=== PATIENT | male | born 1945 | race Caucasian/White ===

== ENCOUNTER 2024-01-06 17:38 | Inpatient (IN) | payer MEDICARE, OTHER ==
[~2024-01-06] VITALS: Ht 167.6 cm; Wt 95.3 kg
[2024-01-06 18:04] LABS: BASOPHILS # (AUTO) 0.1 K/UL (0.0-0.2); EOSINOPHILS # (AUTO) 0.4 K/uL (0.0-0.7); EOSINOPHILS % (AUTO) 2.7 % (0.0-7.0); HEMATOCRIT 48.3 % (36.7-47.1); HEMOGLOBIN 15.5 g/dL (12.5-16.3); LYMPHOCYTES # (AUTO) 5.8 K/uL (0.8-4.8); LYMPHOCYTES % (AUTO) 43.2 % (20.5-51.5); MEAN CORPUSCULAR HEMOGLOBIN 28.4 uug (23.8-33.4); MEAN CORPUSCULAR HGB CONC 32 g/dL (32.5-36.3); MONOCYTES # (AUTO) 1.3 K/uL (0.1-1.30); MONOCYTES % (AUTO) 9.7 % (0.0-11.0); NEUTROPHILS # (AUTO) 5.8 K/uL (1.8-8.9); NEUTROPHILS % (AUTO) 43.4 % (38.5-71.5); PLATELET COUNT (AUTO) 238 K/uL (152-348); RED BLOOD CELL COUNT(AUTO) 5.43 MIL/uL (4.06-5.63); RED CELL DISTRIBUTION WIDTH 15.5 % (12.1-16.2); WHITE BLOOD COUNT (AUTO) 13.5 K/uL (3.6-10.2)
[2024-01-06 18:06] LABS: DIFFERENTIAL COMMENT 1
[2024-01-06 18:12] LABS: CALCIUM 9.4 mg/dL (8.5-10.1); CARBON DIOXIDE 23 mmol/L (21-32); CHLORIDE 105 mmol/L (98-107); CREATININE 1.5 mg/dL (0.6-1.3); GLUCOSE 89 mg/dL (74-106); POTASSIUM 4.4 mmol/L (3.5-5.1); SODIUM SERUM 141 mmol/L (136-145); UREA NITROGEN, BLOOD 37 mg/dL (7-18)
[2024-01-06 18:17] LABS: ALANINE AMINOTRANSFERASE 29 U/L (16-63); ALBUMIN 3.9 g/dL (3.4-5.0); ALKALINE PHOSPHATASE 97 U/L (50-136); ASPARTATE AMINOTRANSFERASE 13 U/L (15-37); BILIRUBIN,DIRECT 0.2 mg/dL (0.0-0.2); BILIRUBIN,TOTAL 0.7 mg/dL (0.2-1.0); TOTAL PROTEIN, SERUM 8.1 g/dL (6.4-8.2)
[2024-01-06] MEDS ORDERED: TRAM50TA2 PO (18:23)
[2024-01-06] MEDS ORDERED: FENO40TA3 PO (18:23)
[2024-01-06] MEDS ORDERED: FURO-152 PO (18:23)
[2024-01-06] MEDS ORDERED: MILK OF MAG PO (18:23)
[2024-01-06] MEDS ORDERED: GABA600T12 PO (18:23)
[2024-01-06] MEDS ORDERED: ALLO300T2 PO (18:23)
[2024-01-06] MEDS ORDERED: METO200T49 PO (18:23)
[2024-01-06] MEDS ORDERED: CLOP75TA15 PO (18:23)
[2024-01-06] MEDS ORDERED: LACT10SO58 PO (18:23)
[2024-01-06] MEDS ORDERED: ATOR40TA PO (18:23)
[2024-01-06] MEDS ORDERED: GALA8CAP PO (18:23)
[2024-01-06] MEDS ORDERED: GUAI100S9 PO (18:23)
[2024-01-06] MEDS ORDERED: DIGO125T PO (18:23)
[2024-01-06] MEDS ORDERED: BISA10SU61 RC (18:23)
[2024-01-06] MEDS ORDERED: FAMO10TA41 PO (18:23)
[2024-01-06] MEDS ORDERED: ACET-3117 PO (18:23)
[2024-01-06] MEDS ORDERED: MINERAL OIL (18:23)
[2024-01-06] MEDS ORDERED: APIX5TAB PO (18:23)
[2024-01-06] MEDS ORDERED: POLY15DR64 OP (18:23)
[2024-01-06] MEDS ORDERED: NICO-625 TP (18:23)
[2024-01-06 18:42] LABS: ACETAMINOPHEN < 2.0 ug/mL (10-30)
[2024-01-06 18:43] LABS: ETHANOL < 3 MG/DL (0-10)
[2024-01-06 22:45] VITALS: BP 133/60; TEMP 97.7; O2SAT 96
[2024-01-06] MEDS: BLOOD SUGAR DIAGNOSTIC 1 EACH STRIP VI ONE (23:30)
[2024-01-06] MEDS ORDERED: MAGNESIUM HYDROXIDE 30 ML LIQUID UDC PO PRN (23:30)
[2024-01-06] MEDS ORDERED: MAG HYDROX/AL HYDROX/SIMETH 30 ML LIQUID UDC PO PRN (23:30)
[2024-01-07 07:44] VITALS: BP 107/48; TEMP 98.2; O2SAT 91
[2024-01-07] MEDS ORDERED: FAMOTIDINE 20 MG TABLET PO PRN (09:30)
[2024-01-07] MEDS ORDERED: TRAMADOL HCL 50 MG TABLET PO PRN (09:30)
[2024-01-07] MEDS ORDERED: FAMO40TA7 PO (09:30)
[2024-01-07] MEDS ORDERED: ACETAMINOPHEN 325 MG TABLET PO PRN (09:30)
[2024-01-07] MEDS ORDERED: FAMOTIDINE 20 MG TABLET PO SCH (09:30)
[2024-01-07] MEDS ORDERED: BISACODYL 10 MG SUPP.RECT RC PRN (09:30)
[2024-01-07] MEDS ORDERED: HOME MED MISCELLANEOUS XX SCH (09:30)
[2024-01-07] MEDS ORDERED: LACTULOSE 20 G/30 ML LIQUID UDC PO PRN (09:30)
[2024-01-07] MEDS ORDERED: GALA8TAB8 PO (09:34)
[2024-01-07] MEDS: NICOTINE 7 MG/24HR PATCH TD SCH (10:03)
[2024-01-07] MEDS: CLOPIDOGREL 75 MG TABLET PO SCH (10:04)
[2024-01-07] MEDS: POLYVINYL ALCOHOL OPHT DROPS 15 ML BOTTLE EACHEYE PRN (13:20)
[2024-01-07] MEDS: DIGOXIN 125 MCG TABLET PO SCH (13:20)
[2024-01-07] MEDS: SERTRALINE HCL 50 MG TABLET PO SCH (13:23)
[2024-01-07 15:28] VITALS: BP 157/79; TEMP 98.2; O2SAT 98
[2024-01-07] MEDS: GABAPENTIN 300 MG CAPSULE PO SCH (15:38)
[2024-01-07] MEDS ORDERED: NA P133E RC (15:57)
[2024-01-07] MEDS: LACTULOSE 20 G/30 ML LIQUID UDC PO SCH (16:47)
[2024-01-07] MEDS: APIXABAN 5 MG TABLET PO SCH (16:48)
[2024-01-07] MEDS: FENOFIBRATE NANOCRYSTALLIZED 48 MG TABLET PO SCH (16:48)
[2024-01-07] MEDS: ATORVASTATIN 40 MG TABLET PO SCH (18:19)
[2024-01-07 20:00] VITALS: BP 117/67; TEMP 97.5; O2SAT 91
[2024-01-08 07:16] LABS: BASOPHILS # (AUTO) 0.1 K/UL (0.0-0.2); BASOPHILS % (AUTO) 0.8 % (0.0-2.0); EOSINOPHILS # (AUTO) 0.3 K/uL (0.0-0.7); HEMATOCRIT 46.7 % (36.7-47.1); HEMOGLOBIN 15.3 g/dL (12.5-16.3); LYMPHOCYTES % (AUTO) 38.3 % (20.5-51.5); MEAN CORPUSCULAR HEMOGLOBIN 29.5 uug (23.8-33.4); MEAN CORPUSCULAR HGB CONC 33 g/dL (32.5-36.3); MEAN CORPUSCULAR VOLUME 89.7 fL (73.0-96.2); MONOCYTES # (AUTO) 0.9 K/uL (0.1-1.30); MONOCYTES % (AUTO) 8.9 % (0.0-11.0); NEUTROPHILS # (AUTO) 5.1 K/uL (1.8-8.9); PLATELET COUNT (AUTO) 199 K/uL (152-348); RED BLOOD CELL COUNT(AUTO) 5.21 MIL/uL (4.06-5.63); RED CELL DISTRIBUTION WIDTH 15.2 % (12.1-16.2); WHITE BLOOD COUNT (AUTO) 10.5 K/uL (3.6-10.2)
[2024-01-08 07:17] LABS: DIFFERENTIAL COMMENT 1
[2024-01-08 07:50] LABS: ALANINE AMINOTRANSFERASE 25 U/L (16-63); ALBUMIN 3.7 g/dL (3.4-5.0); ALKALINE PHOSPHATASE 94 U/L (50-136); ASPARTATE AMINOTRANSFERASE 8 U/L (15-37); BILIRUBIN,TOTAL 0.9 mg/dL (0.2-1.0); CALCIUM 9.3 mg/dL (8.5-10.1); CARBON DIOXIDE 23 mmol/L (21-32); CHLORIDE 108 mmol/L (98-107); CREATINE KINASE, TOTAL 60 U/L (39-308); CREATININE 1.5 mg/dL (0.6-1.3); GLUCOSE 108 mg/dL (74-106); MAGNESIUM 1.5 mg/dL (1.8-2.4); PHOSPHOROUS 2.7 mg/dL (2.5-4.9); POTASSIUM 3.9 mmol/L (3.5-5.1); SODIUM SERUM 142 mmol/L (136-145); TOTAL PROTEIN, SERUM 7.6 g/dL (6.4-8.2); UREA NITROGEN, BLOOD 33 mg/dL (7-18)
[2024-01-08 08:05] VITALS: BP 117/71; TEMP 98; O2SAT 94
[2024-01-08] MEDS ORDERED: ALLOPURINOL 300 MG TABLET PO SCH ×2 (09:00→10:30)
[2024-01-08] MEDS: METOPROLOL SUCCINATE XL 50 MG TAB.SR.24H PO SCH (09:10)
[2024-01-08] MEDS: MAGNESIUM OXIDE 400 MG TABLET PO ONE (10:26)
[2024-01-08] MEDS ORDERED: METF-494 PO (10:45)
[2024-01-08] MEDS: FUROSEMIDE 20 MG TABLET PO SCH (11:08)
[2024-01-08 15:07] VITALS: BP 125/71; TEMP 98; O2SAT 96
[2024-01-08] MEDS: GALANTAMINE 8 MG PO SCH (17:49)
[2024-01-08 20:00] VITALS: BP 111/69; TEMP 97.5; O2SAT 95
[2024-01-08] MEDS: INGREZZA 40 MG PO SCH (20:17)
[2024-01-08] MEDS: ATORVASTATIN 40 MG TABLET PO SCH (21:07)
[2024-01-09 08:00] VITALS: BP 116/70; TEMP 97.6; O2SAT 97
[2024-01-09] MEDS ORDERED: MISCELLANEOUS MED PO SCH (09:00)
[2024-01-09] MEDS: REMEDY ESSENTIAL ZINC PASTE 113 GM TOP SCH (10:03)
[2024-01-09] MEDS: ALLOPURINOL 100 MG TABLET PO SCH (10:03)
[2024-01-09 20:00] VITALS: BP 122/55; TEMP 97.8; O2SAT 95
[2024-01-10 07:50] LABS: CALCIUM 9.5 mg/dL (8.5-10.1); CREATININE 1.3 mg/dL (0.6-1.3); POTASSIUM 4.2 mmol/L (3.5-5.1)
[2024-01-10 08:25] VITALS: BP 133/93; TEMP 97.9; O2SAT 97
[2024-01-10 16:21] VITALS: BP 111/54; TEMP 97.9; O2SAT 97
[2024-01-10 21:12] VITALS: BP 105/59; TEMP 98; O2SAT 98
[2024-01-11] MEDS: FAMOTIDINE 20 MG TABLET PO PRN (05:02)
[2024-01-11 07:21] LABS: CALCIUM 9.4 mg/dL (8.5-10.1); CARBON DIOXIDE 26 mmol/L (21-32); CHLORIDE 103 mmol/L (98-107); CREATININE 1.4 mg/dL (0.6-1.3); GLUCOSE 113 mg/dL (74-106); POTASSIUM 4.3 mmol/L (3.5-5.1); SODIUM SERUM 139 mmol/L (136-145); UREA NITROGEN, BLOOD 32 mg/dL (7-18)
[2024-01-11 08:19] VITALS: BP 96/56; TEMP 98.2; O2SAT 98
[2024-01-11] MEDS: SERTRALINE HCL 50 MG TABLET PO SCH (08:43)
[2024-01-11 16:30] VITALS: BP 109/59; TEMP 98.1; O2SAT 97
[2024-01-11 20:20] VITALS: BP 106/58; TEMP 98.1; O2SAT 96
[2024-01-12 09:35] VITALS: BP 98/60; TEMP 97.7; O2SAT 97
[2024-01-12 10:41] LABS: CALCIUM 9.8 mg/dL (8.5-10.1); CARBON DIOXIDE 26 mmol/L (21-32); CHLORIDE 106 mmol/L (98-107); CREATININE 1.5 mg/dL (0.6-1.3); GLUCOSE 166 mg/dL (74-106); POTASSIUM 4.3 mmol/L (3.5-5.1); SODIUM SERUM 142 mmol/L (136-145); UREA NITROGEN, BLOOD 31 mg/dL (7-18)
[2024-01-12 16:50] VITALS: BP 113/66; TEMP 97.8; O2SAT 97
[2024-01-12 20:08] VITALS: BP 110/62; TEMP 97.6; O2SAT 95
[2024-01-13 08:00] VITALS: BP 103/57; TEMP 97.9; O2SAT 92
[2024-01-13 14:49] LABS: CALCIUM 9.4 mg/dL (8.5-10.1); CARBON DIOXIDE 24 mmol/L (21-32); CHLORIDE 103 mmol/L (98-107); CREATININE 1.6 mg/dL (0.6-1.3); GLUCOSE 121 mg/dL (74-106); POTASSIUM 4.3 mmol/L (3.5-5.1); SODIUM SERUM 139 mmol/L (136-145); UREA NITROGEN, BLOOD 34 mg/dL (7-18)
[2024-01-13 16:38] VITALS: BP 99/59; TEMP 97.8; O2SAT 95
[2024-01-13 20:12] VITALS: BP 116/56; TEMP 97.8; O2SAT 95
[2024-01-14 08:00] VITALS: BP 124/75; TEMP 98; O2SAT 94
[2024-01-14 12:11] LABS: A/G RATIO 0.9 (0.7-1.7); ALBUMIN 3.3 g/dL (2.9-4.4); ALPHA-1-GLOBULIN 0.2 g/dL (0.0-0.4); ALPHA-2-GLOBULIN 0.8 g/dL (0.4-1.0); BETA GLOBULIN 0.9 g/dL (0.7-1.3); GAMMA GLOBULIN 1.8 g/dL (0.4-1.8); GLOBULIN, TOTAL 3.8 g/dL (2.2-3.9); M-SPIKE 0.8 g/dL (Not Observed)
[2024-01-14 16:18] VITALS: BP 116/70; TEMP 98; O2SAT 96
[2024-01-14 20:00] VITALS: BP 122/56; TEMP 98.1; O2SAT 93
[2024-01-15 07:56] VITALS: BP 113/82; TEMP 98.2; O2SAT 98
[2024-01-15 16:14] VITALS: BP 96/54; TEMP 97.6; O2SAT 97
[2024-01-15 20:00] VITALS: BP 101/60; TEMP 97.6; O2SAT 92
[2024-01-15] MEDS: GUAIFENESIN SUGAR FREE 100 MG/5 ML UDC PO PRN (20:24)
[2024-01-16 08:03] VITALS: BP 116/43; TEMP 98.2; O2SAT 90
[2024-01-16 16:19] VITALS: BP 115/48; TEMP 98.4; O2SAT 92
[2024-01-16 20:00] VITALS: BP 110/60; TEMP 97.5; O2SAT 93
[2024-01-16] MEDS: ACETAMINOPHEN 325 MG TABLET PO PRN (22:22)
[2024-01-17 08:29] VITALS: BP 104/69; TEMP 98; O2SAT 97
[2024-01-17 16:12] VITALS: BP 140/76; TEMP 98; O2SAT 97
[2024-01-17 20:00] VITALS: BP 111/50; TEMP 97.6; O2SAT 94
[2024-01-18 08:42] VITALS: BP 99/57; TEMP 97.7; O2SAT 97
[2024-01-18 16:29] VITALS: BP 134/62; TEMP 97.8; O2SAT 97
[2024-01-18 20:12] VITALS: BP 112/64; TEMP 97.9; O2SAT 96
[2024-01-18] MEDS: ZOLPIDEM 5 MG TABLET PO PRN (20:36)
[2024-01-19 07:57] VITALS: BP 128/57; TEMP 98; O2SAT 96
[2024-01-19 08:43] VITALS: BP 128/57
== END 2024-01-19 13:00 | DRG 885 ==
LOC: ER 17:42 → GPS 22:26
PROVIDERS: ADMIT Psychiatry & Neurology Psychiatry; ATTEND Nurse Practitioner Acute Care
DX: F39 Unspecified mood [affective] disorder (principal); N17.0 Acute kidney failure with tubular necrosis; N18.30 Chronic kidney disease, stage 3 unspecified; I69.354 Hemiplegia and hemiparesis following cerebral infarction affecting left non-dominant side; F31.9 Bipolar disorder, unspecified; I12.9 Hypertensive chronic kidney disease with stage 1 through stage 4 chronic kidney disease, or unspecified chronic kidney disease; E11.22 Type 2 diabetes mellitus with diabetic chronic kidney disease; F11.11 Opioid abuse, in remission; F17.210 Nicotine dependence, cigarettes, uncomplicated; G47.00 Insomnia, unspecified; Z91.199 Patient's noncompliance with other medical treatment and regimen due to unspecified reason; E78.5 Hyperlipidemia, unspecified; Z79.02 Long term (current) use of antithrombotics/antiplatelets; Z79.01 Long term (current) use of anticoagulants; I49.5 Sick sinus syndrome; Z95.0 Presence of cardiac pacemaker; F41.9 Anxiety disorder, unspecified; Z95.2 Presence of prosthetic heart valve; E66.9 Obesity, unspecified; Z68.33 Body mass index [BMI] 33.0-33.9, adult; Z71.3 Dietary counseling and surveillance; Z95.1 Presence of aortocoronary bypass graft; I25.10 Atherosclerotic heart disease of native coronary artery without angina pectoris; N40.0 Benign prostatic hyperplasia without lower urinary tract symptoms; M89.8X9 Other specified disorders of bone, unspecified site; J44.9 Chronic obstructive pulmonary disease, unspecified; I48.0 Paroxysmal atrial fibrillation; E11.51 Type 2 diabetes mellitus with diabetic peripheral angiopathy without gangrene
CPT/HCPCS: 36415; 76770; 83735; 83970; 84100; 84155; 84165; 85025; A9150; G0480; J8499